=== PATIENT | male | born 1980 | race Two or more races ===

== ENCOUNTER 2016-07-31 12:31 | Outpatient (CLI) ==
[2015-04-17 18:17] VITALS: BMI 39.5
== END 2016-07-31 12:32 | disposition home or self-care (01) ==
LOC: LAB 12:31
PROVIDERS: ATTEND General Practice
DX: E11.628 Type 2 diabetes mellitus with other skin complications (principal)
CPT/HCPCS: 36415; 83036

== ENCOUNTER 2017-03-26 13:18 | Outpatient (CLI) ==
[2015-04-17 18:17] VITALS: BMI 39.5
[2017-03-26 14:21] LABS: ALBUMIN 4.1 g/dL (3.4-5.0); ANION GAP 16.1; BUN/CREATININE RATIO 19.81; CALCIUM 8.5 mg/dL (8.2-10.2); CREATININE 1.06 mg/dL (0.60-1.10); PHOSPHORUS 2.8 mg/dL (2.5-4.9); POTASSIUM 4.1 mmol/L (3.5-5.1)
== END 2017-03-26 13:19 | disposition home or self-care (01) ==
LOC: LAB 13:18
PROVIDERS: ATTEND General Practice
DX: E11.9 Type 2 diabetes mellitus without complications (principal); Z79.899 Other long term (current) drug therapy
CPT/HCPCS: 36415; 80069; 83036